=== PATIENT | male | born 1965 | race Caucasian/White ===

== ENCOUNTER 2024-08-22 14:25 | Inpatient (IN) | payer OTHER ==
[2024-08-22 15:09] VITALS: BMI 22.8
[2024-08-22] MEDS ORDERED: BENZOCAINE/MENTHOL (CHLORASEPTIC ) LOZENGE MM PRN (15:42)
[2024-08-22] MEDS ORDERED: BENZONATATE 200 MG CAPSULE PO PRN (15:42)
[2024-08-22] MEDS ORDERED: DICYCLOMINE HCL 10 MG CAPSULE PO PRN (15:42)
[2024-08-22] MEDS ORDERED: MAGNESIUM HYDROX 2400MG/30ML ORAL SUSPENSION 30 ML CUP PO PRN (15:42)
[2024-08-22] MEDS ORDERED: LOPERAMIDE HCL 2 MG CAPSULE PO PRN (15:42)
[2024-08-22] MEDS ORDERED: BISMUTH SUBSALICYLATE 524 MG/30 ML PO PRN (15:42)
[2024-08-22] MEDS ORDERED: IBUPROFEN 400 MG TABLET (FP) PO PRN (15:42)
[2024-08-22] MEDS ORDERED: NALOXONE (NARCAN) HCL 4 MG/0.1 ML SPRAY NS PRN (15:42)
[2024-08-22] MEDS ORDERED: guaiFENesin 600 MG TABLET.ER (FP) PO PRN (15:42)
[2024-08-22] MEDS ORDERED: ONDANSETRON *ODT* 4 MG TABLET SL PRN (15:42)
[2024-08-22] MEDS ORDERED: POLYETHYLENE GLYCOL (HEALTHYLAX) 3350 17 GM PACKET PO PRN (15:42)
[2024-08-22] MEDS ORDERED: NICOTINE POLACRILEX 2 MG GUM BUC PRN (15:42)
[2024-08-22] MEDS: ACETAMINOPHEN 325 MG TABLET (FP) PO PRN (15:50)
[2024-08-22] MEDS: hydrOXYzine PAMOATE 25 MG CAPSULE (FP) PO PRN (17:47)
[2024-08-22] MEDS: THIAMINE 100 MG TABLET PO SCH (22:15)
[2024-08-22] MEDS: MELATONIN 5 MG TABLETS PO SCH (22:15)
[2024-08-22] MEDS: METHOCARBAMOL 500 MG TABLET PO PRN (22:17)
[2024-08-23 09:45] LABS: CHLORIDE 108 mmol/L (98-107); HEMATOCRIT 44.7 % (40.1-51.0); HEMOGLOBIN 14.5 g/dL (13.7-17.5); MCHC 32.4 g/dl (32.3-36.5); MEAN CELL VOLUME 94.1 fl (79.0-92.2); MEAN PLT VOLUME 9.3 fl (9.4-12.4); PLATELET COUNT # 306 x10^3/uL (163-337); POTASSIUM 4.7 mmol/L (3.5-5.1); RDW 13.7 % (12.2-16.1); SODIUM 141 mmol/L (136-145)
[2024-08-23 09:55] LABS: BLOOD UREA NITROGEN 12.7 mg/dL (7-18); CALCIUM 9.2 mg/dL (8.5-10.1)
[2024-08-23 09:56] LABS: ALBUMIN 3.5 g/dl (3.4-5.0); ANION GAP 5 mmol/L (4-13); CO2 28 mmol/L (21-32); GLUCOSE,RANDOM 93 mg/dL (74-106)
[2024-08-23 09:59] LABS: CREATININE 0.8 mg/dL (0.55-1.3); SGOT/AST 20 U/L (15-37); SGPT/ALT 29 U/L (13-61)
[2024-08-23 10:00] LABS: BILIRUBIN,TOTAL 0.3 mg/dL (0.2-1); TOT PROT 6.3 g/dl (6.4-8.2)
[2024-08-23 10:01] LABS: ALK PHOS 90 U/L (45-117)
[2024-08-23] MEDS: PRENATAL VITAMINS W/ FOLIC ACID TABLET (FP) PO SCH (10:01)
[2024-08-23] MEDS: NICOTINE 21 MG/24 HOURS TOPICAL PATCH TD SCH (10:02)
[2024-08-23] MEDS: ASPIRIN 81 MG CHEWABLE TABLETS PO SCH (14:27)
[2024-08-23] MEDS: FAMOTIDINE 20 MG TABLET PO SCH ×2 (17:28→19:16)
[2024-08-24] MEDS: IBUPROFEN 600 MG TABLET (FP) PO PRN (09:56)
[2024-08-24] MEDS: MAG HYDROX/AL HYDROX/SIMETH 30 ML UNIT-DOSE CUP PO PRN (15:41)
[2024-08-24] MEDS: SUVOREXANT 10 MG TABLET PO PRN (21:06)
[2024-08-25 08:52] VITALS: BP 126/83; PULSE 92; RESP 18; TEMP 97.9
== END 2024-08-25 10:48 | disposition other institution (70) | DRG 774 ==
LOC: YASAS 14:25 → Y6N 16:48
PROVIDERS: ADMIT Allergy & Immunology; ATTEND Allergy & Immunology
PROC: HZ2ZZZZ Detoxification Services for Substance Abuse Treatment (ICD-10-PCS; principal; 2024-08-22)
DX: F10.20 Alcohol dependence, uncomplicated (principal); F14.20 Cocaine dependence, uncomplicated; F17.210 Nicotine dependence, cigarettes, uncomplicated; F19.282 Other psychoactive substance dependence with psychoactive substance-induced sleep disorder; K21.9 Gastro-esophageal reflux disease without esophagitis; R94.31 Abnormal electrocardiogram [ECG] [EKG]
CPT/HCPCS: 36415; 80053; 80305; 80307; 84484; 85027; 86780; 87811; 93005; 93010